=== PATIENT | female | born 1995 | race Caucasian/White ===

== ENCOUNTER 2017-11-28 14:50 | Emergency (ER) | payer MEDICAID ==
--- NOTE | 2017-11-28 16:33 | ER ---
HISTORY OF PRESENT ILLNESS: A 22-year-old lady here with complaints of a rash that she has had for the last day or two. It has been on her extremities, mostly the arms, to a lesser degree her shoulders. She has not noticed any rash on her torso. She states it is quite itchy and at times it [place], especially after it is wet or when she is washed. She denies any fever. She has not had any problems with shortness of breath, wheezing, or GI symptoms. The patient does not know what she could be allergic to. She is . OBJECTIVE: General appearance: The patient is awake and alert. No obvious distress. Vital signs are reviewed as listed. Physical exam, examining the patient's hands reveals a blotchy erythematous rash present on the dorsal aspect of her hands and the medial side of the forearms and upper arms. The rash is mostly macular. There are a few lesions that are slightly raised. There are no blisters, pustules, or scabs. The rash has almost a scaly appearance on the dorsal aspect of both the wrists. This is consistent with an urticaria rash with almost a small component of atopic dermatitis. DIAGNOSIS: Urticaria. TREATMENT PLAN: The patient is , therefore, prednisone will not be used. I advised her to use Benadryl 25 to 50 mg every 6 to 8 hours and keep the areas that are involved to cool. She can use a good moisturizing lotion as well. Followup should be with her primary care provider early next week if her symptoms have not resolved. Followup is otherwise p.r.n. here if her condition should get worse. CRS/MODL /[id number]
[2017-11-28 18:16] VITALS: BP 105/66
== END 2017-11-28 15:30 | disposition home or self-care (01) ==
LOC: LB.ED 14:50
DX: O99.719 Diseases of the skin and subcutaneous tissue complicating pregnancy, unspecified trimester (principal); L50.9 Urticaria, unspecified; Z3A.00 Weeks of gestation of pregnancy not specified
CPT/HCPCS: 99282

== ENCOUNTER 2018-11-08 18:57 | Emergency (ER) | payer MEDICAID ==
--- NOTE | 2018-11-08 20:05 | EDM.PDOC ---
ED HPI GENERAL MEDICAL PROBLEM - General Chief Complaint: Genitourinary Problem Stated Complaint: VAGINAL BLEEDING/HX OF + PREG TEST Time Seen by Provider: 11/08/18 19:30 Source of Information: Reports: Patient History Limitations: Reports: No Limitations - History of Present Illness INITIAL COMMENTS - FREE TEXT/NARRATIVE: Pt is a 22 year old 4 , living para 3. Presenting to emergency room with Vaginal bleeding for 2 months. Pt claims that her last child was 6 months ago. She has been sexually active. She has had vaginal bleeding for past 2 months now. Bleeding is mild to moderate flow. For the past 2 months she has been changing 1-2 tampons daily. But for the past 4 days she has been passing clots and has been having pelvic cramps. Pt also has been craving for certain foods. So she did do home times 2 and they were both positive. Hence she did come into emergency room today to have checked. C/o feeling tired and weak. Has nausea on and off, but no vomiting. No abdominal distension. No vaginal discharge. No passing of grape like bodies from vaginal. Duration: Week(s): (8), Getting Worse Location: Reports: Pelvis Quality: Reports: Ache Severity: Mild Improves with: Reports: None Worsens with: Reports: None Associated Symptoms: Reports: Nausea/Vomiting, Weakness. Denies: Confusion, Chest Pain, Cough, Fever/Chills, Headaches, Malaise, Rash, Seizure, Shortness of Breath, Syncope Abdominal/Uterine Pain Score (Numeric/FACES): 5 - Related Data Allergies Allergy/AdvReac Type Severity Reaction Status Date / Time amoxicillin Allergy Swelling Verified 11/28/17 15:24 Penicillins Allergy Swelling Verified 11/28/17 15:24 Home Meds: Home Meds Norgestimate-Ethinyl Estradiol [[place]-Linyah 28 Tablet] 1 each PO DAILY 11/08/18 [History] Past Medical History HEENT History: Reports: Impaired Vision Respiratory History: Reports: Asthma Genitourinary History: Reports: UTI, Recurrent 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 TREATING MACHINE OPERATOR History: pt states that she has been bleeding on and off for the past 1 1/2 months has only had a 1 week break from bleeding Musculoskeletal History: Reports: Fracture, Other (See Below) Other Musculoskeletal History: Hx R clavicle Fx Neurological History: Reports: Concussion Psychiatric History: Reports: Depression Hematologic History: Reports: Anemia, Blood Transfusion(s) - Infectious Disease History Infectious Disease History: Reports: Other (See Below) Other Infectious Disease History: Recurrent UTIs - Past Surgical History Musculoskeletal Surgical History: Reports: Other (See Below) Social & Family History - Family History Family Medical History: Noncontributory ED ROS GENERAL - Review of Systems Review Of Systems: See Below Constitutional: Reports: Weakness. Denies: Fever, Chills, Weight Loss HEENT: Denies: Rhinitis, Throat Pain, Throat Swelling Respiratory: Denies: Shortness of Breath, Cough, Sputum Cardiovascular: Denies: Chest Pain, Lightheadedness Endocrine: Denies: Fatigue GI/Abdominal: Reports: Melena, Nausea. Denies: Abdominal Pain, Vomiting : Denies: Dysuria, Flank Pain, Hematuria, Urgency Musculoskeletal: Denies: Joint Pain, Joint Swelling Skin: Denies: Bruising, Pruritis, Rash ED EXAM, GENERAL - Physical Exam Exam: See Below Exam Limited By: No Limitations General Appearance: Alert, WD/WN, No Apparent Distress Eye Exam: Bilateral Eye: EOMI, PERRL Ears: Normal External Exam, Normal Canal, Hearing Grossly Normal, Normal TMs Ear Exam: Bilateral Ear: Auricle Normal, Canal Normal, TM normal Nose: Normal Inspection, Normal Mucosa, No Blood Throat/Mouth: Normal Inspection, Normal Lips, Normal Teeth, Normal Gums, Normal Oropharynx, Normal Voice, No Airway Compromise Head: Atraumatic, Normocephalic Neck: Normal Inspection, Supple, Non-Tender, Full Range of Motion Respiratory/Chest: No Respiratory Distress, Lungs Clear, Normal Breath Sounds, No Accessory Muscle Use, Chest Non-Tender Cardiovascular: Normal Peripheral Pulses, Regular Rate, Rhythm, No Edema, No Gallop, No JVD, No Murmur, No Rub GI/Abdominal: Normal Bowel Sounds, Soft, Non-Tender, No Organomegaly, No Mass, Pelvis Stable (Female) Exam: Normal External Exam, Normal Bimanual Exam, Cervical Dilatation, Vaginal Bleeding, Other (On speculum exam: there is old blood noted in the vaginal vault. also cervix is open and there is mucoid bloody drainage at the os. No cervical motion tenderness.No adenexal mass. Uterus boggy.). No: Adnexal Mass, Adnexal Tenderness, Cervix Motion Tenderness Course - Vital Signs Text/Narrative:: Pt has had 2 months history of vaginal bleeding. Recently has had 2 positive home tests. She has been bleeding for a 2 months now daily and consent , her bleeding has got worse in the past 4 days. On pelvic exam she does have open cervix with active slow bleeding from cervical os.I do not know if she is for sure OR if she is she has ovarian hormonal insufficiency OR having an active miscarriage. So I have ordered Urine , Quant HCG, CBC and CMP for complete workup. Pt's CBC shows white count of 8K with hemoglobin 12.2gms. Her CMP is normal. Her UA is negative other than blood in urine. Urine HCG positive and her Quant HCG is 67. Considering patient's history of 2 months of bleeding and low quant HCG of 67 it does appear like she is having miscarriage. This might be incomplete miscarriage, which might be the cause of on going bleeding or there might be some other uterine pathology.Pt appears hemodynamically stable.Pt reassured and findings were discussed with patient.Pt should get pelvic ultrasound. Will schedule it for tomorrow and followup with results. Also patient does have OB appointment in [facility] on 11/18/18. Which I have advised her to keep. Last Recorded V/S: Last Vital Signs Temp 97.6 F 11/08/18 19:32 Pulse 88 11/08/18 19:32 Resp 16 11/08/18 19:32 BP 123/72 11/08/18 19:32 Pulse Ox 100 11/08/18 19:32 - Orders/Labs/Meds Labs: Laboratory Tests 11/08/18 11/08/18 11/08/18 Range/Units 19:50 19:50 19:50 WBC 8.0 (4.0-11.0) K/uL RBC 4.15 (3.80-5.80) M/uL Hgb 12.2 (11.5-16.5) g/dL Hct 37.9 (37.0-47.0) % MCV 91 (76-96) fL MCH 29.4 (27.0-32.0) pg MCHC 32.2 (31.0-35.0) g/dL RDW 13.7 (11.0-16.0) % Plt Count 238 (150-500) K/uL MPV 11.2 H (6.0-10.0) fL Neut % (Auto) 57.0 (45.0-70.0) % Lymph % (Auto) 29.8 (20.0-40.0) % [place] % (Auto) 8.6 (3.0-10.0) % Eos % (Auto) 4.4 (1.0-5.0) % Baso % (Auto) 0.2 (0.0-0.5) % Neut # (Auto) 4.58 (2.00-7.50) K/uL Lymph # (Auto) 2.39 (1.50-4.00) K/uL [place] # (Auto) 0.69 (0.20-0.80) K/uL Eos # (Auto) 0.35 (0.04-0.40) K/uL Baso # (Auto) 0.02 (0.02-0.10) K/uL Sodium 142 (136-145) mmol/L Potassium 4.1 (3.5-5.1) mmol/L Chloride 104 (98-107) mmol/L Carbon Dioxide 28.8 (21.0-32.0) mmol/L Anion Gap 13.3 (5.0-15.0) mmol/L BUN 16 D (8-26) mg/dL Creatinine 0.77 (0.55-1.02) mg/dL Est Cr Clr Drug Dosing TNP Estimated GFR (MDRD) > 60 (>60) MLS/MIN BUN/Creatinine Ratio 20.8 (6-25) Glucose 83 D (74-100) mg/dL Calcium 8.9 (8.5-10.1) mg/dL Total Bilirubin 0.2 D (0.0-1.0) mg/dL AST 12 L (15-37) U/L ALT 24 (12-78) U/L Alkaline Phosphatase 74 (46-116) U/L Total Protein 7.6 (6.4-8.2) g/dL Albumin 3.8 (3.4-5.0) g/dL Globulin 3.8 (2.2-4.2) g/dL Albumin/Globulin Ratio 1.0 (0.8-2.0) HCG, Quant (0-6) mIU/mL Urine Color Yellow Urine Appearance Clear (CLEAR) Urine pH 6.5 (5.0-8.0) Ur Specific [place] 1.025 (1.003-1.030) Urine Protein Negative (NEGATIVE) mg/dL Urine Glucose (UA) Negative (NEGATIVE) mg/dL Urine Ketones Negative (NEGATIVE) mg/dL Urine Occult Blood Small H (NEGATIVE) Urine Nitrite Negative (NEGATIVE) Urine Bilirubin Negative (NEGATIVE) Urine Urobilinogen 0.2 (0.2-1.0) E.U./dL Ur Leukocyte Esterase Negative (NEGATIVE) Urine RBC 0-5 H /HPF Urine WBC 5-10 H /HPF Ur Squamous Epith Cells Few /HPF Urine HCG, Qual (NEGATIVE) 11/08/18 11/08/18 Range/Units 20:08 20:08 WBC (4.0-11.0) K/uL RBC (3.80-5.80) M/uL Hgb (11.5-16.5) g/dL Hct (37.0-47.0) % MCV (76-96) fL MCH (27.0-32.0) pg MCHC (31.0-35.0) g/dL RDW (11.0-16.0) % Plt Count (150-500) K/uL MPV (6.0-10.0) fL Neut % (Auto) (45.0-70.0) % Lymph % (Auto) (20.0-40.0) % [place] % (Auto) (3.0-10.0) % Eos % (Auto) (1.0-5.0) % Baso % (Auto) (0.0-0.5) % Neut # (Auto) (2.00-7.50) K/uL Lymph # (Auto) (1.50-4.00) K/uL [place] # (Auto) (0.20-0.80) K/uL Eos # (Auto) (0.04-0.40) K/uL Baso # (Auto) (0.02-0.10) K/uL Sodium (136-145) mmol/L Potassium (3.5-5.1) mmol/L Chloride (98-107) mmol/L Carbon Dioxide (21.0-32.0) mmol/L Anion Gap (5.0-15.0) mmol/L BUN (8-26) mg/dL Creatinine (0.55-1.02) mg/dL Est Cr Clr Drug Dosing Estimated GFR (MDRD) (>60) MLS/MIN BUN/Creatinine Ratio (6-25) Glucose (74-100) mg/dL Calcium (8.5-10.1) mg/dL Total Bilirubin (0.0-1.0) mg/dL AST (15-37) U/L ALT (12-78) U/L Alkaline Phosphatase (46-116) U/L Total Protein (6.4-8.2) g/dL Albumin (3.4-5.0) g/dL Globulin (2.2-4.2) g/dL Albumin/Globulin Ratio (0.8-2.0) HCG, Quant 67 H (0-6) mIU/mL Urine Color Urine Appearance (CLEAR) Urine pH (5.0-8.0) Ur Specific [place] (1.003-1.030) Urine Protein (NEGATIVE) mg/dL Urine Glucose (UA) (NEGATIVE) mg/dL Urine Ketones (NEGATIVE) mg/dL Urine Occult Blood (NEGATIVE) Urine Nitrite (NEGATIVE) Urine Bilirubin (NEGATIVE) Urine Urobilinogen (0.2-1.0) E.U./dL Ur Leukocyte Esterase (NEGATIVE) Urine RBC /HPF Urine WBC /HPF Ur Squamous Epith Cells /HPF Urine HCG, Qual Positive H (NEGATIVE) Departure - Departure Time of Disposition: 22:50 Disposition: Home, Self-Care 01 Condition: Fair Clinical Impression: First trimester - Discharge Information *PRESCRIPTION DRUG MONITORING PROGRAM REVIEWED*: Not Applicable *COPY OF PRESCRIPTION DRUG MONITORING REPORT IN PATIENT PATI: Not Applicable Referrals: PCP,None [Primary Care Provider] - Forms: ED Department Discharge Additional Instructions: The front office from the hospital will call you tomorrow morning with time for scheduled ultrasound to be completed on Friday, November 09, 2018. Drink plenty of fluids and get plenty of rest. Activity and diet as tolerated. Return to the hospital on November 10 at any time for repeat Hcg level to be done. The clinic will call you with all results and further treatment plan will be decided from there. Call with any questions. - Problem List & Annotations (1) First trimester SNOMED Code(s): 929025735 Code(s): Z33.2 - ENCOUNTER FOR ELECTIVE TERMINATION OF Status: Acute - Problem List Review Problem List Initiated/Reviewed/Updated: Yes - Assessment/Plan Assessment:: First trimester miscarriage
[2018-11-08 20:10] VITALS: BP 123/72
== END 2018-11-08 20:49 | disposition home or self-care (01) ==
LOC: LB.ED 18:57
DX: O03.9 Complete or unspecified spontaneous abortion without complication (principal); Z88.0 Allergy status to penicillin
CPT/HCPCS: 36415; 80053; 81001; 81025; 84702; 85025; 99284

== ENCOUNTER 2018-12-05 08:20 | Emergency (ER) | payer MEDICAID ==
[2018-12-05 08:48] VITALS: BP 114/70
--- NOTE | 2018-12-05 08:53 | EDM.PDOC ---
ED HPI GENERAL MEDICAL PROBLEM - General Chief Complaint: General Stated Complaint: miscarriage, heavy bleeding Time Seen by Provider: 12/05/18 09:00 Source of Information: Reports: Patient History Limitations: Reports: No Limitations - History of Present Illness INITIAL COMMENTS - FREE TEXT/NARRATIVE: Pt is here c/o vaginal bleeding . Pt was seen on 11/08/18 in he emergency room for vaginal bleeding and had a miscarriage then. She claims she has been bleeding for more then 2 months now. The bleeding was slow since 11/08/18, but over the past day it had been a lot more, claim had to changed 6 pads since yesterday. No vaginal discharge. No dysuria or frequency.Pt has been sexually active. Duration: Week(s): (2 months), Getting Worse, Waxing/Waning Associated Symptoms: Denies: Confusion, Chest Pain, Cough, Diaphoresis, Fever/ Chills, Headaches, Nausea/Vomiting, Rash, Seizure, Shortness of Breath, Syncope , Weakness Lower Abdominal Pain Score (Numeric/FACES): 6 - Related Data Allergies Allergy/AdvReac Type Severity Reaction Status Date / Time amoxicillin Allergy Swelling Verified 12/05/18 08:36 Penicillins Allergy Swelling Verified 12/05/18 08:36 Home Meds: Home Meds NK [No Known Home Meds] 12/05/18 [History] Past Medical History HEENT History: Reports: Impaired Vision Respiratory History: Reports: Asthma Genitourinary History: Reports: UTI, Recurrent 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 She has also been bleeding on and off for the nast month following a misscarriage. Musculoskeletal History: Reports: Fracture, Other (See Below) Other Musculoskeletal History: Hx R clavicle Fx Neurological History: Reports: Concussion Psychiatric History: Reports: Depression Hematologic History: Reports: Anemia, Blood Transfusion(s) - Infectious Disease History Infectious Disease History: Reports: Other (See Below) Other Infectious Disease History: Recurrent UTIs - Past Surgical History Musculoskeletal Surgical History: Reports: Other (See Below) Social & Family History - Family History Family Medical History: Noncontributory ED ROS GENERAL - Review of Systems Review Of Systems: See Below Constitutional: Denies: Fever, Chills HEENT: Denies: Rhinitis, Throat Pain Respiratory: Denies: Shortness of Breath, Pleuritic Chest Pain, Cough, Sputum Cardiovascular: Denies: Chest Pain, Lightheadedness GI/Abdominal: Denies: Abdominal Pain, Nausea, Vomiting : Denies: Dysuria, Flank Pain, Frequency Musculoskeletal: Denies: Joint Pain, Joint Swelling ED EXAM, GENERAL - Physical Exam Exam: See Below Exam Limited By: No Limitations General Appearance: Alert, WD/WN, No Apparent Distress Eye Exam: Bilateral Eye: EOMI, PERRL Ears: Normal External Exam, Normal Canal, Hearing Grossly Normal, Normal TMs Ear Exam: Bilateral Ear: Auricle Normal, Canal Normal, TM normal Nose: Normal Inspection, Normal Mucosa, No Blood Throat/Mouth: Normal Inspection, Normal Lips, Normal Teeth, Normal Gums, Normal Oropharynx, Normal Voice, No Airway Compromise Head: Atraumatic, Normocephalic Neck: Normal Inspection, Supple, Non-Tender, Full Range of Motion Respiratory/Chest: No Respiratory Distress, Lungs Clear, Normal Breath Sounds, No Accessory Muscle Use, Chest Non-Tender Cardiovascular: Normal Peripheral Pulses, Regular Rate, Rhythm, No Edema, No Gallop, No JVD, No Murmur, No Rub GI/Abdominal: Normal Bowel Sounds, Soft, Non-Tender, No Organomegaly, No Distention, No Abnormal Bruit, No Mass Extremities: Normal Inspection, Normal Range of Motion, Non-Tender, Normal Capillary Refill, No Pedal Edema Skin Exam: Warm, Intact Course - Vital Signs Text/Narrative:: Pt has had vaginal bleeding for 12 months or more now. She was seen on 11/08/18 for same reason, apparently she was and had miscarriage then. She had pelvic ultrasound scheduled and appointment with OB-HEAVY MEDIA OPERATOR, which she has not done. She is here for on going vaginal bleeding. On today's visit, her urine HCG is negative. Her CBC show hemoglobin of 12.8gm today, which has improved form 12.2gm 1 month ago. Her UA shows positive nitrite with WBC. Pt reassured that she has dysfunctional uterine bleeding, might be related to menstrual hormone insufficiency or abnormality. Her vitals are stable she is not tachycardiac, her heart rte is 72/min. I have started her on provera 10mg daily to stop the bleeding for 1 wk. Also Advised to followup with OB-HEAVY MEDIA OPERATOR for further workup of her vaginal bleeding. Also on today's visit, she has had UTI. Have started her on Bactrim DS 1 PO BID for 7 days and advised to drink plenty of fluids. Last Recorded V/S: Last Vital Signs Temp 97.1 F 12/05/18 08:46 Pulse 72 12/05/18 08:46 Resp 18 12/05/18 08:46 BP 114/70 12/05/18 08:46 Pulse Ox 98 12/05/18 08:46 - Orders/Labs/Meds Orders: Active Orders 24 hr Category Date Time Status medroxyPROGESTERone [Provera] Med 12/05/18 09:45 Active 10 mg PO DAILY Medication Orders Medroxyprogesterone Acetate (Provera) 10 mg PO DAILY HAWA Labs: Laboratory Tests 12/05/18 12/05/18 12/05/18 Range/Units 09:00 09:10 09:10 WBC 6.7 (4.0-11.0) K/uL RBC 4.28 (3.80-5.80) M/uL Hgb 12.8 (11.5-16.5) g/dL Hct 39.5 (37.0-47.0) % MCV 92 (76-96) fL MCH 29.9 (27.0-32.0) pg MCHC 32.4 (31.0-35.0) g/dL RDW 14.1 (11.0-16.0) % Plt Count 256 (150-500) K/uL MPV 10.9 H (6.0-10.0) fL Neut % (Auto) 61.9 (45.0-70.0) % Lymph % (Auto) 25.2 (20.0-40.0) % [place] % (Auto) 7.1 (3.0-10.0) % Eos % (Auto) 5.5 H (1.0-5.0) % Baso % (Auto) 0.3 (0.0-0.5) % Neut # (Auto) 4.17 (2.00-7.50) K/uL Lymph # (Auto) 1.70 (1.50-4.00) K/uL [place] # (Auto) 0.48 (0.20-0.80) K/uL Eos # (Auto) 0.37 (0.04-0.40) K/uL Baso # (Auto) 0.02 (0.02-0.10) K/uL Urine Color Yellow Urine Appearance Slightly cloudy (CLEAR) Urine pH 6.5 (5.0-8.0) Ur Specific [place] 1.015 (1.003-1.030) Urine Protein Negative (NEGATIVE) mg/dL Urine Glucose (UA) Negative (NEGATIVE) mg/dL Urine Ketones Negative (NEGATIVE) mg/dL Urine Occult Blood Large H (NEGATIVE) Urine Nitrite Positive H (NEGATIVE) Urine Bilirubin Negative (NEGATIVE) Urine Urobilinogen 0.2 (0.2-1.0) E.U./dL Ur Leukocyte Esterase Negative (NEGATIVE) Urine RBC 50-75 H /HPF Urine WBC 0-5 H /HPF Ur Squamous Epith Cells Few /HPF Urine Bacteria Many H /HPF Urine HCG, Qual Negative (NEGATIVE) Meds: Medications Generic Name Dose Route Start Last Admin Trade Name Freq PRN Reason Stop Dose Admin Medroxyprogesterone Acetate 10 mg 12/05/18 09:45 Provera PO DAILY HAWA Departure - Departure Time of Disposition: 09:50 Disposition: Home, Self-Care 01 Condition: Fair Clinical Impression: UTI, Urinary tract infectious disease, Vaginal bleeding UTI (urinary tract infection) Qualifiers: Urinary tract infection type: acute cystitis Hematuria presence: with hematuria Qualified Code(s): N30.01 - Acute cystitis with hematuria - Discharge Information *PRESCRIPTION DRUG MONITORING PROGRAM REVIEWED*: Not Applicable *COPY OF PRESCRIPTION DRUG MONITORING REPORT IN PATIENT PATI: Not Applicable Instructions: Urinary Tract Infection, Adult, [id number], Medroxyprogesterone tablets, Sulfamethoxazole; Trimethoprim, SMX-TMP tablets Referrals: PCP,None [Primary Care Provider] - Forms: ED Department Discharge Additional Instructions: *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 Douglass If you have any questions or concerns please call us at [phone] - Problem List & Annotations (1) Vaginal bleeding SNOMED Code(s): 620296154, 260176399 Code(s): N93.9 - ABNORMAL UTERINE AND VAGINAL BLEEDING, UNSPECIFIED Status : Acute Current Visit: Yes (2) UTI (urinary tract infection) SNOMED Code(s): 00897994 Code(s): N39.0 - URINARY TRACT INFECTION, SITE NOT SPECIFIED Status: Acute Current Visit: Yes Qualifiers: Urinary tract infection type: acute cystitis Hematuria presence: with hematuria Qualified Code(s): N30.01 - Acute cystitis with hematuria - Problem List Review Problem List Initiated/Reviewed/Updated: Yes - My Orders Last 24 Hours: My Active Orders 12/05/18 09:45 medroxyPROGESTERone [Provera] 10 mg PO DAILY - Assessment/Plan Last 24 Hours: My Active Orders 12/05/18 09:45 medroxyPROGESTERone [Provera] 10 mg PO DAILY Assessment:: Vaginal bleeding-DUB UTI Plan: Pt has had vaginal bleeding for 12 months or more now. She was seen on 11/08/18 for same reason, apparently she was and had miscarriage then. She had pelvic ultrasound scheduled and appointment with OB-HEAVY MEDIA OPERATOR, which she has not done. She is here for on going vaginal bleeding. On today's visit, her urine HCG is negative. Her CBC show hemoglobin of 12.8gm today, which has improved form 12.2gm 1 month ago. Her UA shows positive nitrite with WBC. Pt reassured that she has dysfunctional uterine bleeding, might be related to menstrual hormone insufficiency or abnormality. Her vitals are stable she is not tachycardiac, her heart rte is 72/min. I have started her on provera 10mg daily to stop the bleeding for 1 wk. Also Advised to followup with OB-HEAVY MEDIA OPERATOR for further workup of her vaginal bleeding. Also on today's visit, she has had UTI. Have started her on Bactrim DS 1 PO BID for 7 days and advised to drink plenty of fluids.
[2018-12-05] MEDS ORDERED: Sulfamethoxazole/Trimethoprim 800-160 MG Tab ONE (09:30)
== END 2018-12-05 09:47 | disposition home or self-care (01) ==
LOC: LB.ED 08:20
DX: N93.9 Abnormal uterine and vaginal bleeding, unspecified (principal); N30.01 Acute cystitis with hematuria; Z88.1 Allergy status to other antibiotic agents; Z88.0 Allergy status to penicillin
CPT/HCPCS: 36415; 81001; 81025; 85025; 99284; A9270-GY

== ENCOUNTER 2025-05-01 23:34 | Emergency (ER) | payer BC ==
[2025-05-02 00:24] VITALS: BP 120/71; PULSE 86
== END 2025-05-02 00:12 | disposition home or self-care (01) ==
LOC: LB.ED 23:34
DX: S61.412A Laceration without foreign body of left hand, initial encounter (principal); Z88.0 Allergy status to penicillin; Z79.899 Other long term (current) drug therapy; W26.0XXA Contact with knife, initial encounter; Y93.89 Activity, other specified
CPT/HCPCS: 12002; 99282; 99283